=== PATIENT | female | born 1975 | race African-American/Black ===

== ENCOUNTER 2018-11-26 09:59 | Observation (INO) ==
[2018-11-26 12:10] LABS: Basophils % 0.7 % (0.0-0.8); Eosinophils % 0.3 % (0.00-10.9); Hematocrit 21.4 VOL% (35.7-47.0); Immature Granulocytes % 1.2 %; Immature Granulocytes Absolute 0.07 #; Lymphocytes # 0.3 10*3/uL (1.4-4.0); Lymphocytes % 4.4 % (21.3-54.2); Mean Corpuscular HGB Conc 29.4 GM/DL (32-36); Mean Corpuscular Hemoglobin 24 PG (27-34); Mean Corpuscular Volume 80.8 FL (87-102); Mean Platelet Volume 10.4 FL (9.6-12.0); Monocytes # 0.2 10*3/uL (0.11-0.8); Monocytes % 3.1 % (1.7-12.7); Neutrophils # 5.2 10*3/uL (1.4-7.4); Neutrophils % 90.3 % (38.7-73.9); Platelet Count 234 T/CUMM (130-400); Red Blood Count 2.65 MC/CUMM (3.8-5.5); Red Cell Distribution Width 16.6 % (9.3-17.3); White Blood Count 5.7 T/CUMM (4-12)
[2018-11-26 12:13] LABS: Hemoglobin 6.3 GM/DL (12.0-16.0)
[2018-11-26] MEDS ORDERED: ALBUTEROL/IPRATROPIUM 3 ML NEB RESP TX STA (12:14)
[2018-11-26] MEDS ORDERED: FUROSEMIDE 40 MG/4 ML VIAL IV STA (12:14)
[2018-11-26 12:26] LABS: Albumin 3.6 G/DL (3.4-5.0); Bilirubin,Total 0.4 MG/DL (0.2-1.0); Calcium 8.2 MG/DL (8.5-10.1); Osmolality,Calculated 273.5 MOS/KG (273-304); Potassium 3.6 MMOL/L (3.5-5.1); Total Protein 7.8 G/DL (6.4-8.3)
[2018-11-26 14:18] LABS: Hypochromasia 2+
[2018-11-26 14:20] LABS: Microcytosis 1+; Ovalocytes Slight
[2018-11-26 14:21] LABS: Platelet Estimate Normal; Polychromasia Slight; Stomatocytes Few
[2018-11-26] MEDS ORDERED: ONDANSETRON 4 MG/2 ML VIAL IV PRN (15:57)
[2018-11-26] MEDS ORDERED: BISACODYL 5 MG TABLET PO PRN (15:57)
[2018-11-26] MEDS ORDERED: LACTULOSE 20 GM/30 ML UDCUP PO PRN (15:57)
[2018-11-26] MEDS ORDERED: ACETAMINOPHEN 325 MG TABLET PO PRN (15:57)
[2018-11-26] MEDS ORDERED: traZODone 50 MG TABLET PO PRN (15:57)
[2018-11-26] MEDS ORDERED: NICOTINE 21 MG/24 HR PATCH TRANSDERM PRN (15:57)
[2018-11-26] MEDS ORDERED: PROMETHAZINE 25 MG/1 ML VIAL IM PRN (15:57)
[2018-11-26] MEDS ORDERED: diphenhydrAMINE CAP 25 MG CAPSULE PO PRN (15:57)
[2018-11-26] MEDS ORDERED: SODIUM CHLORIDE 0.9% 1,000 ML IV PRN (16:01)
[2018-11-26] MEDS ORDERED: FUROSEMIDE 20 MG/2 ML VIAL IV SCH (16:30)
[2018-11-26] MEDS ORDERED: ACETAMINOPHEN 325 MG TABLET PO SCH (16:30)
[2018-11-26] MEDS ORDERED: diphenhydrAMINE 50 MG/1 ML VIAL IV SCH (16:30)
[2018-11-26] MEDS ORDERED: MAGNESIUM SULF RIDER 2 GM in PREMIX 1 EACH IV PRN (16:38)
[2018-11-26] MEDS ORDERED: POTASSIUM CHLORIDE RIDER 10 MEQ in PREMIX 1 EACH IV PRN (16:38)
[2018-11-26] MEDS ORDERED: MAGNESIUM SULF RIDER 4 GM in PREMIX 1 EACH IV PRN (16:38)
[2018-11-26] MEDS ORDERED: PNEUMOCOCCAL VACCINE (13 VALENT) 0.5 ML SYRINGE IM ONE (19:01)
[2018-11-26] MEDS: POTASSIUM CHLORIDE 20 MEQ TABLET PO SCH (22:06)
[2018-11-26] MEDS: SIMVASTATIN 40 MG TABLET PO SCH (22:07)
[2018-11-26] MEDS: DOCUSATE SODIUM 100 MG CAPSULE PO SCH (22:07)
[2018-11-26] MEDS: CARVEDILOL 3.125 MG TABLET PO SCH (22:07)
[2018-11-26] MEDS: FERROUS SULFATE 325 MG TABLET PO SCH (22:08)
[2018-11-26] MEDS: OSELTAMIVIR 75 MG CAPSULE PO SCH (22:08)
[2018-11-27] MEDS: LEVOTHYROXINE 175 MCG TABLET PO SCH (06:00)
[2018-11-27 06:45] LABS: Basophils % 0.6 % (0.0-0.8); Eosinophils # 0.1 10*3/uL (0.0-0.87); Eosinophils % 1.7 % (0.00-10.9); Hematocrit 26.5 VOL% (35.7-47.0); Immature Granulocytes % 0.9 %; Immature Granulocytes Absolute 0.06 #; Lymphocytes # 0.5 10*3/uL (1.4-4.0); Lymphocytes % 7.2 % (21.3-54.2); Mean Corpuscular HGB Conc 30.6 GM/DL (32-36); Mean Corpuscular Hemoglobin 26 PG (27-34); Mean Corpuscular Volume 83.6 FL (87-102); Mean Platelet Volume 10.3 FL (9.6-12.0); Monocytes # 0.3 10*3/uL (0.11-0.8); Monocytes % 3.9 % (1.7-12.7); Neutrophils # 5.7 10*3/uL (1.4-7.4); Neutrophils % 85.7 % (38.7-73.9); Platelet Count 202 T/CUMM (130-400); Red Blood Count 3.17 MC/CUMM (3.8-5.5); Red Cell Distribution Width 16.3 % (9.3-17.3); White Blood Count 6.6 T/CUMM (4-12)
[2018-11-27 06:51] LABS: Hemoglobin 8.1 GM/DL (12.0-16.0)
[2018-11-27 07:05] LABS: % Iron Saturation 18.1 % (18-50); Albumin 3.4 G/DL (3.4-5.0); Bilirubin,Total 0.6 MG/DL (0.2-1.0); Ferritin 64.4 ng/ml (8-252); Osmolality,Calculated 275.5 MOS/KG (273-304); Potassium 3.8 MMOL/L (3.5-5.1); Total Protein 7.2 G/DL (6.4-8.3)
[2018-11-27 07:19] LABS: Folate 22.6 NG/ML (5.4-24.0)
[2018-11-27] MEDS: DOCUSATE SODIUM 100 MG CAPSULE PO SCH ×2 (08:48→21:50)
[2018-11-27] MEDS: FUROSEMIDE 40 MG/4 ML VIAL IV SCH ×2 (08:48→15:58)
[2018-11-27] MEDS: OSELTAMIVIR 75 MG CAPSULE PO SCH ×2 (08:48→21:50)
[2018-11-27] MEDS: POTASSIUM CHLORIDE 20 MEQ TABLET PO SCH ×2 (08:49→21:50)
[2018-11-27] MEDS: CARVEDILOL 3.125 MG TABLET PO SCH ×2 (08:49→21:50)
[2018-11-27] MEDS: LISINOPRIL 5 MG TABLET PO SCH (08:49)
[2018-11-27] MEDS: guaiFENesin/DM ER 600-30 MG TABLET PO PRN (08:50)
[2018-11-27] MEDS: FERROUS SULFATE 325 MG TABLET PO SCH ×2 (08:50→21:50)
[2018-11-27 20:40] LABS: Apearance,Urine CLEAR (Clear); Bilirubin,Urine Negative (Negative); Blood, Urine Negative (Negative); Glucose,Urine (UA) Negative (Negative); Ketones,Urine Negative (Negative); Mucus,Urine Occasional /LPF (Occasional); Nitrite,Urine Negative (Negative); Protein,Urine Negative; RBC,Urine <1 /HPF (0-4); Urine Color Straw (Yellow); Urine Specific Gravity 1.008 (1.001-1.035); Urine Urobilinogen < 2.0 EU/DL (0.2-1.0)
[2018-11-27] MEDS: SIMVASTATIN 40 MG TABLET PO SCH (21:50)
[2018-11-28 04:26] LABS: Basophils % 0.6 % (0.0-0.8); Eosinophils # 0.2 10*3/uL (0.0-0.87); Hematocrit 26.6 VOL% (35.7-47.0); Hemoglobin 8.1 GM/DL (12.0-16.0); Immature Granulocytes % 0.2 %; Immature Granulocytes Absolute 0.01 #; Lymphocytes # 0.8 10*3/uL (1.4-4.0); Lymphocytes % 14.6 % (21.3-54.2); Mean Corpuscular HGB Conc 30.5 GM/DL (32-36); Mean Corpuscular Hemoglobin 26 PG (27-34); Mean Corpuscular Volume 83.6 FL (87-102); Mean Platelet Volume 10.9 FL (9.6-12.0); Monocytes # 0.3 10*3/uL (0.11-0.8); Monocytes % 4.6 % (1.7-12.7); Neutrophils # 4.2 10*3/uL (1.4-7.4); Platelet Count 210 T/CUMM (130-400); Red Blood Count 3.18 MC/CUMM (3.8-5.5); Red Cell Distribution Width 16.3 % (9.3-17.3); White Blood Count 5.4 T/CUMM (4-12)
[2018-11-28 04:55] LABS: Albumin 3.5 G/DL (3.4-5.0); Bilirubin,Total 0.4 MG/DL (0.2-1.0); Calcium 8.1 MG/DL (8.5-10.1); Osmolality,Calculated 275.5 MOS/KG (273-304); Potassium 3.6 MMOL/L (3.5-5.1); Total Protein 7.4 G/DL (6.4-8.3)
[2018-11-28] MEDS: LEVOTHYROXINE 175 MCG TABLET PO SCH (05:55)
[2018-11-28] MEDS: DOCUSATE SODIUM 100 MG CAPSULE PO SCH ×2 (10:05→22:01)
[2018-11-28] MEDS: guaiFENesin/DM ER 600-30 MG TABLET PO PRN (10:05)
[2018-11-28] MEDS: POTASSIUM CHLORIDE 20 MEQ TABLET PO SCH ×2 (10:06→22:01)
[2018-11-28] MEDS: CARVEDILOL 3.125 MG TABLET PO SCH ×2 (10:06→22:02)
[2018-11-28] MEDS: OSELTAMIVIR 75 MG CAPSULE PO SCH ×2 (10:07→22:02)
[2018-11-28] MEDS: FERROUS SULFATE 325 MG TABLET PO SCH ×2 (10:07→22:01)
[2018-11-28] MEDS: FUROSEMIDE 40 MG/4 ML VIAL IV SCH ×2 (10:08→17:16)
[2018-11-28] MEDS: LISINOPRIL 5 MG TABLET PO SCH (10:09)
[2018-11-28] MEDS ORDERED: traMADol 50 MG TABLET PO PRN (10:54)
[2018-11-28] MEDS ORDERED: guaiFENesin/CODEINE 5 ML LIQUID PO PRN (12:40)
[2018-11-28] MEDS ORDERED: IRON SUCROSE 300 MG in SODIUM CHLORIDE 0.9% 100 ML IV ONE ×2 (12:42→19:30)
[2018-11-28] MEDS: methylPREDNISolone SOD SUC 125 MG/2 ML VIAL IV SCH ×2 (13:35→22:02)
[2018-11-28] MEDS: LEVOFLOXACIN INJ 750 MG in PREMIX 1 EACH IV SCH (13:39)
[2018-11-28] MEDS: ALBUTEROL/IPRATROPIUM 3 ML NEB RESP TX SCH ×2 (14:00→20:18)
[2018-11-28] MEDS: BUDESONIDE/FORMOTEROL 80-4.5 INHALER 6.9 GM INH SCH ×2 (15:10→22:02)
[2018-11-28] MEDS: SIMVASTATIN 40 MG TABLET PO SCH (22:01)
[2018-11-28] MEDS: guaiFENesin/DM ER 600-30 MG TABLET PO SCH (22:02)
[2018-11-29] MEDS: ALBUTEROL/IPRATROPIUM 3 ML NEB RESP TX SCH ×2 (00:31→07:13)
[2018-11-29] MEDS: methylPREDNISolone SOD SUC 125 MG/2 ML VIAL IV SCH ×2 (06:05→13:39)
[2018-11-29] MEDS: LEVOTHYROXINE 175 MCG TABLET PO SCH (06:05)
[2018-11-29] MEDS ORDERED: IRON SUCROSE 300 MG in SODIUM CHLORIDE 0.9% 100 ML IV ONE (08:00)
[2018-11-29] MEDS: LISINOPRIL 5 MG TABLET PO SCH (08:48)
[2018-11-29] MEDS: DOCUSATE SODIUM 100 MG CAPSULE PO SCH (08:48)
[2018-11-29] MEDS: OSELTAMIVIR 75 MG CAPSULE PO SCH (08:48)
[2018-11-29] MEDS: CARVEDILOL 3.125 MG TABLET PO SCH (08:48)
[2018-11-29] MEDS: FERROUS SULFATE 325 MG TABLET PO SCH (08:48)
[2018-11-29] MEDS: guaiFENesin/DM ER 600-30 MG TABLET PO SCH (08:49)
[2018-11-29] MEDS: POTASSIUM CHLORIDE 20 MEQ TABLET PO SCH (08:49)
[2018-11-29] MEDS: FUROSEMIDE 40 MG/4 ML VIAL IV SCH (08:49)
[2018-11-29] MEDS: BUDESONIDE/FORMOTEROL 80-4.5 INHALER 6.9 GM INH SCH (08:51)
[2018-11-29 11:46] VITALS: BP 119/63
[2018-11-29] MEDS: LEVOFLOXACIN INJ 750 MG in PREMIX 1 EACH IV SCH (13:45)
== END 2018-11-29 13:14 | disposition home or self-care (01) ==
LOC: N.EDINP 09:59 → N.ED 09:59 → SUATTDRO 15:57 → N.EDINP 18:50 → N.TELEN 19:07
PROVIDERS: ADMIT Hospitalist; ATTEND Internal Medicine

== ENCOUNTER 2022-05-10 12:38 | Observation (INO) ==
[2022-05-10] MEDS ORDERED: ALBUTEROL 2.5 MG/3 ML NEB RESP TX STA ×2 (13:10→14:12)
[2022-05-10] MEDS ORDERED: methylPREDNISolone SOD SUC 125 MG/2 ML VIAL IV STA (13:10)
[2022-05-10 13:34] LABS: Basophils % 0.4 % (0.0-0.8); Eosinophils # 0.3 10*3/uL (0.0-0.87); Eosinophils % 3.5 % (0.00-10.9); Hematocrit 32.9 VOL% (35.7-47.0); Hemoglobin 9.7 GM/DL (12.0-16.0); Immature Granulocytes % 0.5 %; Immature Granulocytes Absolute 0.04 #; Lymphocytes # 1.4 10*3/uL (1.4-4.0); Lymphocytes % 19.3 % (21.3-54.2); Mean Corpuscular HGB Conc 29.5 GM/DL (32-36); Mean Corpuscular Volume 79.9 FL (87-102); Mean Platelet Volume 10.9 FL (9.6-12.0); Monocytes # 0.6 10*3/uL (0.11-0.8); Monocytes % 7.4 % (1.7-12.7); NRBC # 0.03 10*3/uL; Neutrophils % 68.9 % (38.7-73.9); Platelet Count 336 T/CUMM (130-400); Red Blood Count 4.12 MC/CUMM (3.8-5.5); Red Cell Distribution Width 15.8 % (9.3-17.3); White Blood Count 7.5 T/CUMM (4-12)
[2022-05-10 14:05] LABS: Albumin 2.8 G/DL (3.4-5.0); Bilirubin,Total 0.4 MG/DL (0.20-1.00); Calcium 8.9 MG/DL (8.5-10.1); Osmolality,Calculated 286.7 MOS/KG (273-304); Potassium 2.6 MMOL/L (3.5-5.1); Total Protein 7.2 G/DL (6.4-8.2)
[2022-05-10] MEDS ORDERED: POTASSIUM CHLORIDE 20 MEQ TABLET PO STA (14:12)
[2022-05-10] MEDS ORDERED: cefTRIAXone 1,000 MG in SODIUM CHLORIDE 0.9% 100 ML IV STA (15:49)
[2022-05-10] MEDS ORDERED: ZALEPLON 5 MG CAPSULE PO PRN (20:58)
[2022-05-10] MEDS ORDERED: DOCUSATE SODIUM 100 MG CAPSULE PO PRN (20:58)
[2022-05-10] MEDS ORDERED: DEXTROSE 10% 250 ML BAG IV PRN (20:58)
[2022-05-10] MEDS ORDERED: ONDANSETRON 4 MG/2 ML VIAL IV PRN (20:58)
[2022-05-10] MEDS ORDERED: GLUCAGON 1 MG VIAL IM PRN (20:58)
[2022-05-10] MEDS: ENOXAPARIN 40 MG/0.4 ML SYRINGE SUBCUT SCH (21:59)
[2022-05-10] MEDS: carvediloL 3.125 MG TABLET PO SCH ×2 (23:26→23:28)
[2022-05-10] MEDS: DOXYCYCLINE HYCLATE INJ 100 MG in SODIUM CHLORIDE 0.9% 100 ML IV SCH (23:26)
[2022-05-10] MEDS ORDERED: ALBUTEROL/IPRATROPIUM 3 ML NEB RESP TX ONE (23:40)
[2022-05-11] MEDS: ALBUTEROL/IPRATROPIUM 3 ML NEB RESP TX SCH ×4 (00:10→19:35)
[2022-05-11 01:18] LABS: Basophils % 0.2 % (0.0-0.8); Hemoglobin 9.3 GM/DL (12.0-16.0); Immature Granulocytes % 0.6 %; Immature Granulocytes Absolute 0.04 #; Lymphocytes # 0.6 10*3/uL (1.4-4.0); Lymphocytes % 9.4 % (21.3-54.2); Mean Corpuscular Volume 80.1 FL (87-102); Mean Platelet Volume 11.2 FL (9.6-12.0); Monocytes # 0.1 10*3/uL (0.11-0.8); Monocytes % 0.8 % (1.7-12.7); Platelet Count 306 T/CUMM (130-400); Red Blood Count 3.87 MC/CUMM (3.8-5.5); Red Cell Distribution Width 15.7 % (9.3-17.3); White Blood Count 6.6 T/CUMM (4-12)
[2022-05-11 02:00] LABS: Alanine Aminotransferase 17 U/L (13-56); Albumin 2.6 G/DL (3.4-5.0); Alkaline Phosphatase 101 U/L (45-117); Aspartate Amino Transferase 13 U/L (0-37); Bilirubin,Total < 0.39 MG/DL (0.20-1.00); Blood Urea Nitrogen 15 MG/DL (7-18); Calcium 8.6 MG/DL (8.5-10.1); Carbon Dioxide 24 MMOL/L (21-32); Chloride 105 MMOL/L (98-107); Glucose 327 MG/DL (74-106); Osmolality,Calculated 290.5 MOS/KG (273-304); Sodium 139 MMOL/L (136-145); Thyroid Stimulating Hormone 0.007 uIU/ml (0.358-3.74); Total Protein 7.8 G/DL (6.4-8.2)
[2022-05-11 02:07] LABS: Potassium 2.5 MMOL/L (3.5-5.1)
[2022-05-11] MEDS: POTASSIUM CHLORIDE 20 MEQ TABLET PO PRN ×2 (03:28→05:41)
[2022-05-11] MEDS: LEVOTHYROXINE 112 MCG TABLET PO SCH (05:41)
[2022-05-11] MEDS ORDERED: POTASSIUM CHLORIDE 20 MEQ TABLET PO ONE ×4 (07:53→19:00)
[2022-05-11] MEDS ORDERED: FUROSEMIDE 80 MG TABLET PO SCH (09:00)
[2022-05-11] MEDS: ROSUVASTATIN 20 MG TABLET PO SCH (09:03)
[2022-05-11] MEDS: carvediloL 3.125 MG TABLET PO SCH ×2 (09:04→21:14)
[2022-05-11] MEDS: PANTOPRAZOLE 40 MG TABLET PO SCH (09:04)
[2022-05-11] MEDS: SPIRONOLACTONE 25 MG TABLET PO SCH (09:04)
[2022-05-11] MEDS: PREGABALIN 75 MG CAPSULE PO SCH ×2 (09:06→21:14)
[2022-05-11] MEDS: DOXYCYCLINE HYCLATE INJ 100 MG in SODIUM CHLORIDE 0.9% 100 ML IV SCH ×2 (09:08→21:16)
[2022-05-11] MEDS ORDERED: cefTRIAXone 1,000 MG in SODIUM CHLORIDE 0.9% 100 ML IV SCH (16:00)
[2022-05-11] MEDS: ENOXAPARIN 40 MG/0.4 ML SYRINGE SUBCUT SCH (21:15)
[2022-05-12] MEDS: ALBUTEROL/IPRATROPIUM 3 ML NEB RESP TX SCH ×3 (00:10→13:05)
[2022-05-12] MEDS: LEVOTHYROXINE 112 MCG TABLET PO SCH (05:35)
[2022-05-12] MEDS ORDERED: carvediloL 3.125 MG TABLET PO SCH (08:00)
[2022-05-12 08:41] LABS: Calcium 9.1 MG/DL (8.5-10.1); Osmolality,Calculated 286.7 MOS/KG (273-304); Potassium 3.2 MMOL/L (3.5-5.1)
[2022-05-12] MEDS: PREGABALIN 75 MG CAPSULE PO SCH (09:41)
[2022-05-12] MEDS: ROSUVASTATIN 20 MG TABLET PO SCH (09:41)
[2022-05-12] MEDS: PANTOPRAZOLE 40 MG TABLET PO SCH (09:41)
[2022-05-12] MEDS: DOXYCYCLINE HYCLATE INJ 100 MG in SODIUM CHLORIDE 0.9% 100 ML IV SCH (09:42)
[2022-05-12] MEDS: SPIRONOLACTONE 25 MG TABLET PO SCH (09:45)
[2022-05-12 11:33] VITALS: BP 122/62
== END 2022-05-12 14:35 | disposition home or self-care (01) ==
LOC: N.3E 12:38 → N.ED 12:38 → SUATTDRO 20:58 → N.3E 23:07
PROVIDERS: ADMIT Family Medicine; ATTEND Internal Medicine